=== PATIENT | male | born 1950 | race Caucasian/White ===

== ENCOUNTER 2019-12-27 15:20 | Emergency (ER) | payer MEDICARE, SELFPAY ==
[2019-12-27 15:35] VITALS: BP 137/69; PULSE 77; RESP 16; TEMP 37.4; O2SAT 97; BMI 24.8
--- NOTE | 2019-12-27 16:05 | ED.URI ---
HPI - URI/Sore Throat General Chief Complaint: Upper Respiratory Symptoms Stated Complaint: covid test Time Seen by Provider: 12/27/19 15:48 Source: patient Mode of arrival: ambulatory Limitations: no limitations History of Present Illness MD elicited complaint: cough and other (muscle aches, mild fatigue ) Onset (ago): day(s) (last night ) Consistency: intermittent and improved Severity: mild Able to tolerate fluids by mouth: Yes Exacerbating factors: nothing Relieving factors: OTC cold medicine Associated symptoms: denies other symptoms Treatments prior to arrival: none Related Data Allergies Allergy/AdvReac Type Severity Reaction Status Date / Time No Known Allergies Allergy Unverified 12/13/19 17:14 [No Known Allergies*] Review of Systems Constitutional: Constitutional: Reports chills, Denies fever(s), Reports lethargy and Reports poor appetite Eyes: Eyes: Reports no additional eye complaints ENT: Reports system reviewed and no additional complaints, except as documented Cardiovascular: Cardiovascular: Denies chest pain, Denies dyspnea and Denies dyspnea on exertion Respiratory: Respiratory: Denies chest congestion, Denies hemoptysis, Denies excessive phlegm production, Denies dyspnea and Denies dyspnea on exertion Gastrointestinal: Gastrointestinal: Denies abdominal pain, Reports belching, Reports dyspepsia (chronically ), Denies diarrhea and Denies vomiting Genitourinary: Genitourinary: Reports no additional male genitourinary complaints Musculoskeletal: Musculoskeletal: Reports myalgias Neurologic: Reports system reviewed and no additional complaints, except as documented PMFSH Past Medical History Medical History Heartburn HTN (hypertension) Hypercholesteremia Social History Social History Smoking Status: Never smoker Smoked in Last 30 Days: No Use of substances other than those prescribed or required for medical reasons: No Advance Directives: No Advance Directives Information Provided: No Physical Exam Vital Signs and I&O and Narrative: Vital Signs and I&O: Vital Signs Temp 99.3 F 12/27/19 15:35 Pulse 77 12/27/19 15:35 Resp 16 12/27/19 15:35 BP 137/69 12/27/19 15:35 Pulse Ox 97 12/27/19 15:35 Intake & Output 12/26/19 12/27/19 12/27/19 18:59 06:59 18:59 Weight 80.739 kg Body Mass Index 24.8 Const: General: cooperative, healthy appearing, comfortable and no acute distress Orientation/consciousness: oriented to person, oriented to place and oriented to time HENMT: Head: Yes normal to inspection Ears: hearing grossly normal bilaterally Mouth: Normal oral and palatal mucosa present Teeth and gingiva: dentition normal Throat: Yes posterior oropharynx normal Eyes: General: appearance normal, both eyes and all related structures Neck: Neck: Yes normal visual inspection Resp: Effort & Inspection: normal respiratory effort and able to speak in complete sentences Auscultation: clear to auscultation bilaterally Cardio: Rate: regular rate Rhythm: regular rhythm Heart sounds: S1 normal heart sound present and S2 normal heart sound present Neuro: General: oriented to person, oriented to place, oriented to time and gait normal Course Course Hospital Course: 69 y/o male presenting with mild flu like symptoms, improved today. COVID swab ordered. VSS and lungs are clear. Patient appears well. He is stable for discharge. MDM - URI/Sore Throat Differential Diagnosis Differential diagnosis: Likely upper respiratory infection, viral infection, bronchitis and influenza Medical Records Attestation: I reviewed the patient's medical records. Discharge Plan Discharge Clinical Impression: Viral infection Patient Disposition: Home, Self-Care Instructions: Viral Syndrome (ED) Additional Instructions: Take over the counter Cold/Flu medications for symptomatic relief. You were tested for COVID-19 today. We will call you with the results. If you develop chest pain, shortness of breath or difficulty breathing come back to the ER for further evaluation.
== END 2019-12-27 17:30 | disposition home or self-care (01) ==
PROVIDERS: Emergency Provider Emergency Medicine; PCP Internal Medicine
DX: B34.9 Viral infection, unspecified (principal); Z20.828 Contact with and (suspected) exposure to other viral communicable diseases; R50.9 Fever, unspecified; R53.83 Other fatigue
CPT/HCPCS: 36415; 87635; 99283